=== PATIENT | male | born 1975 | race Caucasian/White ===

== ENCOUNTER 2018-11-24 10:40 | Emergency (ER) | payer MEDICAID ==
[~2018-11-24] VITALS: Ht 193 cm; Wt 84.0 kg
[2018-11-24 11:41] LABS: BASOPHILS % (AUTO) 0.4 % (0-1); EOSINOPHILS # (AUTO) 0.3 X10'3 (0-0.9); EOSINOPHILS % (AUTO) 3.6 % (0-6); HEMATOCRIT 47.4 % (42.0-52.0); HEMOGLOBIN 16.5 g/dl (14.0-17.9); LYMPHOCYTES # (AUTO) 1.6 X10'3 (1.1-4.8); MEAN CORPUSCULAR HEMOGLOBIN 31.7 PG (27.0-31.0); MEAN CORPUSCULAR HGB CONC 34.8 g/dL (33.0-36.5); MEAN CORPUSCULAR VOLUME 91.3 FL (78-98); MEAN PLATELET VOLUME 7.4 FL (7.4-10.4); MONOCYTES # (AUTO) 0.6 X10'3 (0-0.9); MONOCYTES % (AUTO) 7.7 % (2-12); NEUTROPHILS # (AUTO) 5.6 X10'3 (1.8-7.7); NEUTROPHILS % (AUTO) 68.3 % (42-75); PLATELET COUNT 299 X10'3 (140-440); RED BLOOD COUNT 5.19 X10'6 (4.70-6.10); RED CELL DISTRIBUTION WIDTH 12.5 % (11.5-14.5); WHITE BLOOD COUNT 8.1 X10'3 (4.5-11.0)
[2018-11-24 11:55] LABS: CLARITY,URINE CLEAR (Clear); COLOR,URINE YELLOW (Yellow); GLUCOSE, URINE NEGATIVE (Neg); KETONES,URINE TRACE mg/dl (Neg); LEUKOCYTE ESTERASE ,URINE NEGATIVE (Neg); NITRITES, URINE NEGATIVE (Neg); OCCULT BLOOD,URINE TRACE-LYSED (Neg); PROTEIN,URINE NEGATIVE (Neg); UROBILINOGEN,URINE 0.2 E.U/dL (0.2-1.0)
[2018-11-24 11:57] LABS: UA COLLECTION TYPE CLN CATCH MIDSTREAM
[2018-11-24 11:58] LABS: ALANINE AMINOTRANSFERASE 24 U/L (12-78); ALBUMIN 4.3 G/DL (3.4-5.0); ALBUMIN/GLOBULIN RATIO 1.2 (1.1-1.5); ALKALINE PHOSPHATASE 106 IU/L (46-116); ANION GAP 9 (8-16); ASPARTATE AMINO TRANSFERASE 17 U/L (10-37); BILIRUBIN,TOTAL 0.3 MG/DL (0.1-1.0); BLOOD UREA NITROGEN 10 MG/DL (7-18); BUN/CREATININE RATIO 12.7 (5.4-32.0); CALCIUM 8.9 MG/DL (8.5-10.1); CHLORIDE 100 MMOL/L (99-107); CREATININE 0.79 MG/DL (0.60-1.10); ETHANOL < 0.010 GM/DL (0.0-0.010); GLUCOSE 94 MG/DL (70-104); POTASSIUM 3.8 MMOL/L (3.5-5.1); SODIUM 139 MMOL/L (135-145); TOTAL CARBON DIOXIDE 29.6 MMOL/L (24-32); TOTAL PROTEIN 7.8 G/DL (6.4-8.2); eGFR > 90 ML/MIN
[2018-11-24 12:00] LABS: SQUAMOUS EPITHELIAL CELL,UR FEW /LPF (FEW)
[2018-11-24 12:01] LABS: BACTERIA,URINE FEW /HPF (Neg); RBC,URINE 0-2 /HPF (0-2); WBC,URINE 0-4 /HPF (0-4)
[2018-11-24 12:02] LABS: URINE AMPHETAMINE SCREEN NEGATIVE (Neg); URINE BARBITUATE SCREEN NEGATIVE (Neg); URINE BENZODIAZEPINES SCREEN NEGATIVE (Neg); URINE CANNABINOID SCREEN NEGATIVE (Neg); URINE COCAINE SCREEN POSITIVE (Neg); URINE METHADONE SCREEN NEGATIVE (Neg); URINE OPIATE SCREEN POSITIVE (Neg); URINE PHENCYCLIDINE SCREEN NEGATIVE (Neg)
--- NOTE | 2018-11-24 12:03 | NUR ---
Tele-pysch consult initated.
--- NOTE | 2018-11-24 12:31 | NUR ---
spoke to tele-psych and gave report on patient. they will be speaking with patient soon.
--- NOTE | 2018-11-24 12:39 | NUR ---
Patient speack ing with tele psych now.
[2018-11-24] MEDS ORDERED: cloNIDine 0.1 mg tablet PO ONE (13:05)
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
[2018-11-24] MEDS ORDERED: folic acid inj. 2 MG, thiamine inj. 100 MG, MVI, adult No.4 with vit. K 10 ML in dextro... IV SCH ×4 (14:35)
[2018-11-24] MEDS ORDERED: LORazepam 1 MG tablet PO PRN (14:35)
--- NOTE | 2018-11-24 15:53 | NUR ---
Nursing Note: Pt states that he does not take any home medications. IV fluids started. Pt pleasant and cooperative. No S&S of distress, will continue to monitor.
--- NOTE | 2018-11-24 17:53 | NUR ---
Nursing Note: Pt laying in bed, IV infusing, no S&S of distress, will continue to monitor.
--- NOTE | 2018-11-24 19:26 | NUR ---
PATIENT AWAKE, ALERT, SITTING UP IN BED, NO SIGNS OF DISTRESS NOTED. IV TO RAC INTACT, NO SIGNS OF INFILTRATION OR REDNESS. PATIENT TO BE TRANSFERED TO [facility], WILL FACILITATE TRANSFER.
[2018-11-24 21:31] VITALS: BP 116/76
== END 2018-11-24 21:33 ==
LOC: ER 10:40
DX: F32.9 Major depressive disorder, single episode, unspecified (principal); F10.10 Alcohol abuse, uncomplicated; F11.90 Opioid use, unspecified, uncomplicated; F14.90 Cocaine use, unspecified, uncomplicated; Z88.1 Allergy status to other antibiotic agents
CPT/HCPCS: 36415; 80053; 80305; 80320; 81001; 85025; 96365; 96366; 99285; J3411; J3490; J7060

== ENCOUNTER 2018-11-24 17:10 | Inpatient (IN) | payer MEDICAID | END 2018-11-27 13:00 | disposition still patient (30) | LOC: ADULT MH 17:10 | DX: R45.851 Suicidal ideations (principal) ==

== ENCOUNTER 2019-06-10 14:33 | Emergency (ER) | payer MEDICAID ==
[~2019-06-10] VITALS: Ht 190.5 cm; Wt 79.5 kg
[~2019-06-10 14:33] MED LIST: DULO30CA52 PO
[2019-06-10 14:50] VITALS: BP 123/74
== END 2019-06-10 15:24 | disposition home or self-care (01) ==
LOC: ER 14:34
DX: F19.230 Other psychoactive substance dependence with withdrawal, uncomplicated (principal); F14.90 Cocaine use, unspecified, uncomplicated; F11.90 Opioid use, unspecified, uncomplicated; F15.90 Other stimulant use, unspecified, uncomplicated; F32.9 Major depressive disorder, single episode, unspecified; Z88.1 Allergy status to other antibiotic agents; Z79.899 Other long term (current) drug therapy
CPT/HCPCS: 99281

== ENCOUNTER 2022-03-17 13:10 | Emergency (ER) | payer MEDICAID ==
[~2022-03-17] VITALS: Ht 190.5 cm; Wt 81.8 kg
[2022-03-17] MEDS ORDERED: NALO4SPR BOTHNARES ×2 (13:15)
[2022-03-17 13:23] VITALS: BP 166/88
[2022-03-17] MEDS ORDERED: BUPR8TAB4 SL (23:00)
[2022-03-17] MEDS ORDERED: ZOLP10TA PO (23:00)
== END 2022-03-17 13:26 | disposition home or self-care (01) ==
LOC: ER 13:10
DX: T40.411A Poisoning by fentanyl or fentanyl analogs, accidental (unintentional), initial encounter (principal); F32.A Depression, unspecified; F14.90 Cocaine use, unspecified, uncomplicated; F11.90 Opioid use, unspecified, uncomplicated; F19.90 Other psychoactive substance use, unspecified, uncomplicated; Z72.89 Other problems related to lifestyle; Z88.1 Allergy status to other antibiotic agents; Z79.899 Other long term (current) drug therapy; Y92.89 Other specified places as the place of occurrence of the external cause
CPT/HCPCS: 99283

== ENCOUNTER 2022-03-17 17:02 | Inpatient (IN) | payer MEDICAID ==
[~2022-03-17] VITALS: Ht 190.5 cm; Wt 80.2 kg
[~2022-03-17 17:02] MED LIST changes: +NALO4SPR BOTHNARES
--- NOTE | 2022-03-17 17:40 | NUR ---
Pt stated, "I don't want to live anymore" and he took 2 unknown pills. He is unsteady on his feet.
[2022-03-17 18:00] LABS: BASOPHILS % (AUTO) 0.7 % (0-1); EOSINOPHILS # (AUTO) 0.3 X10'3 (0-0.9); EOSINOPHILS % (AUTO) 4.5 % (0-6); HEMATOCRIT 39.4 % (42.0-52.0); HEMOGLOBIN 13.7 g/dl (14.0-17.9); LYMPHOCYTES # (AUTO) 1.7 X10'3 (1.1-4.8); LYMPHOCYTES % (AUTO) 23.9 % (21-51); MEAN CORPUSCULAR HEMOGLOBIN 30.4 PG (27.0-31.0); MEAN CORPUSCULAR HGB CONC 34.8 g/dL (33.0-36.5); MEAN CORPUSCULAR VOLUME 87.4 FL (78-98); MONOCYTES # (AUTO) 0.6 X10'3 (0-0.9); MONOCYTES % (AUTO) 7.9 % (2-12); NEUTROPHILS # (AUTO) 4.6 X10'3 (1.8-7.7); PLATELET COUNT 248 X10'3 (140-440); RED BLOOD COUNT 4.51 X10'6 (4.70-6.10); WHITE BLOOD COUNT 7.3 X10'3 (4.5-11.0)
[2022-03-17 18:05] LABS: URINE AMPHETAMINE SCREEN NEGATIVE (Neg); URINE BARBITUATE SCREEN NEGATIVE (Neg); URINE BENZODIAZEPINES SCREEN POSITIVE (Neg); URINE CANNABINOID SCREEN NEGATIVE (Neg); URINE COCAINE SCREEN NEGATIVE (Neg); URINE METHADONE SCREEN NEGATIVE (Neg); URINE OPIATE SCREEN NEGATIVE (Neg); URINE PHENCYCLIDINE SCREEN NEGATIVE (Neg)
[2022-03-17 18:08] LABS: ALANINE AMINOTRANSFERASE 17 U/L (12-78); ALBUMIN 3.9 G/DL (3.4-5.0); ALBUMIN/GLOBULIN RATIO 1.3 (1.1-1.5); ALKALINE PHOSPHATASE 95 IU/L (46-116); ANION GAP 6 (8-16); ASPARTATE AMINO TRANSFERASE 22 U/L (10-37); BILIRUBIN,TOTAL 0.2 MG/DL (0.1-1.0); BLOOD UREA NITROGEN 9 MG/DL (7-18); BUN/CREATININE RATIO 12.7 (5.4-32.0); CALCIUM 8.8 MG/DL (8.5-10.1); CHLORIDE 106 MMOL/L (99-107); CREATININE 0.71 MG/DL (0.60-1.10); GLUCOSE 120 MG/DL (70-104); POTASSIUM 3.9 MMOL/L (3.5-5.1); SODIUM 142 MMOL/L (135-145); TOTAL CARBON DIOXIDE 30.2 MMOL/L (24-32); eGFR > 90 ML/MIN
[2022-03-17 18:17] LABS: ETHANOL < 0.010 GM/DL (0.0-0.010)
[2022-03-17] MEDS ORDERED: BUPR8TAB4 SL (23:00)
[2022-03-17] MEDS ORDERED: ZOLP10TA PO (23:00)
--- NOTE | 2022-03-18 02:01 | NUR ---
PT HAS BEEN SLEEPING THROUGH THE NIGHT. EVEN AND UNLABORED CHEST RISE AND FALL NOTED.
--- NOTE | 2022-03-18 06:23 | NUR ---
Received report from Merry.
--- NOTE | 2022-03-18 06:31 | NUR ---
Pt ambulated to ED-OF from main ED. Pt was placed in bed #26. Pt was calm/cooperative and went back to sleep. Pt is in a hospital gown, as there is no green scubs.
--- NOTE | 2022-03-18 07:00 | NUR ---
Pt resting comfortably on left side, respirations even and unlabored.
--- NOTE | 2022-03-18 08:30 | NUR ---
Pt ate 100% of his breakfast.
--- NOTE | 2022-03-18 08:55 | NUR ---
[facility] at bedside.
--- NOTE | 2022-03-18 09:05 | NUR ---
Pt awake lying in bed with eyes open, no distress noted.
--- NOTE | 2022-03-18 09:47 | NUR ---
Pt up to bathroom to void. 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
--- NOTE | 2022-03-18 11:03 | NUR ---
Pt slightly restless, letting out loud breathing sounds the rolling over to sleep. Will continue to monitor. Pt was placed on a 5150 hold.
--- NOTE | 2022-03-18 11:08 | NUR ---
PT [facility] [phone]
--- NOTE | 2022-03-18 13:03 | NUR ---
Pt resting comfortably in supine position. Pt ate 100% of his lunch.
--- NOTE | 2022-03-18 14:41 | NUR ---
Pt is restless lying in bed making deliberate loud yawning noises, rolling around in his bed. When asked what is going on pt states "I don't know." Pt has not been agressive, but continues with elevated restlessness. Spoke with Dr. Beckham received order for Zyprexa 5mg BID. Will give first dose now.
[2022-03-18] MEDS: OLANZapine 2.5MG tablet PO SCH ×2 (14:53→20:00)
--- NOTE | 2022-03-18 15:30 | NUR ---
Pt c/o feeling nauseated and having sweats. Pt feel is withdrawing from his Buprenorphine. Pt states his last dose was 2 days ago. Pt's home medications were reviewed and designer writer spoke with Dr. Beckham to restart patient on his medication. Pt's vitals were WNL. Pt is on Buprenorphine 8mg SL BID Will continue to monitor.
--- NOTE | 2022-03-18 16:11 | NUR ---
Received phone call from pt's mental health provider Dr Copeland at [facility] [phone]. She states she was just on phone with pt's mother and she updated her on pts's status. She reports she has been treating patient for about eleven months. She considers pt a high risk if discharged. Explained to her pt was on a 5150 hold and awaiting placement. Received verbal authorization from patient to speak to her.
[2022-03-18] MEDS: buprenorphine/naloxone 8MG-2MG SUBlingual film SL SCH ×2 (16:26→20:00)
--- NOTE | 2022-03-18 17:08 | NUR ---
Pt is restless, continues with low growl sounds. Vitals remain WNL. Suboxone was administered at 1630. Addendum: 03/18/22 at 1715 by FABIENNE No N/V reported.
--- NOTE | 2022-03-18 17:30 | NUR ---
Pt is quiet in bed, respirations even and unlabored. No restless movements. Pt has been very dramatic.
--- NOTE | 2022-03-18 17:58 | NUR ---
Pt continues to rest comfortably.
--- NOTE | 2022-03-18 18:02 | NUR ---
Pt up eagerly eating dinner. Pt states "I feel a lot better." Pt presents calm.
--- NOTE | 2022-03-18 19:00 | NUR ---
PT MOM CALLED TO CHECK ON HIS STATUS. PT RESTING QUIETLY IN BED WITHOUT DISTRESS, WILL MONITOR THROUGHOUT.
--- NOTE | 2022-03-18 21:30 | NUR ---
PT REFUSED NIGHTLY ZYPREXA, INFORMED PT TO LET ME KNOW IF HE THINKS HE NEEDS SOMETHING. PT VERBALIZED UNDERSTANDING.
--- NOTE | 2022-03-19 03:44 | NUR ---
PT UP TO BATHROOM AND BACK TO BET, NO ACUTE DISTRESS NOTED. NO BEHAVIORS
--- NOTE | 2022-03-19 06:45 | NUR ---
PT APPEARS TO BE SLEEPING. NO S/S ACUTE DISTRESS. RESPIRATIONS EQUAL AND UNLABORED
[2022-03-19] MEDS: OLANZapine 2.5MG tablet PO SCH ×2 (07:45→19:58)
[2022-03-19] MEDS: buprenorphine/naloxone 8MG-2MG SUBlingual film SL SCH ×2 (07:45→19:58)
--- NOTE | 2022-03-19 08:06 | NUR ---
DURING 1:1 BEDSIDE ASSESSMENT, PT DENIES SI/SH/HI/AVH. PT CURRENTLY DENIES DEPRESSION OR ANXIETY AT THIS TIME. STATES "I'M JUST SLEEPY." PT DOES NOT ELABORATE REGARDING FEELINGS OR EMOTIONS. PT THEN RETURNS BACK TO SLEEPING
--- NOTE | 2022-03-19 09:30 | NUR ---
[facility] CALLED FOR POSSIBLE PLACEMENT. STATES THEY WILL CALL BACK FOR A NURSE TO NURSE REPORT. REQUESTING A 2 WEEK RX FOR SUBOXONE.
[2022-03-19] MEDS ORDERED: BUPR1FIL3 SL (09:36)
--- NOTE | 2022-03-19 09:45 | NUR ---
[facility] LINDER CALLED AND GIVEN A NURSE TO NURSE REPORT. STATE THEY NEED A 30 DAY SCRIPT FOR SUBOXONE. ARE REQUESTING RESEND OF LABS THEY ARE MISSING THE URINALYSIS. WILL CALL BACK TO CONFIRM PLACEMENT
--- NOTE | 2022-03-19 09:53 | NUR ---
Met with patient in regards to Suboxone use and to make sure patient has a provider outside of Hospital. Patient sees a provider via telehealth to get his Suboxone.
[2022-03-19 10:33] LABS: CLARITY,URINE CLEAR (Clear); COLOR,URINE YELLOW (Yellow); GLUCOSE, URINE NEGATIVE (Neg); KETONES,URINE NEGATIVE (Neg); LEUKOCYTE ESTERASE ,URINE NEGATIVE (Neg); NITRITES, URINE NEGATIVE (Neg); OCCULT BLOOD,URINE NEGATIVE (Neg); PH,URINE 7.5 (4.8-8.0); PROTEIN,URINE NEGATIVE (Neg); UROBILINOGEN,URINE 0.2 E.U/dL (0.2-1.0)
--- NOTE | 2022-03-19 10:34 | NUR ---
PT LYING IN BED AWAKE. NO DISTRESS NOTED. UA TAKEN TO LAB. WILL CONTINUE TO MONITOR.
[2022-03-19 10:52] LABS: UA COLLECTION TYPE CLN CATCH MIDSTREAM
--- NOTE | 2022-03-19 12:25 | NUR ---
PT EATING LUNCH. NO DISTRESS
--- NOTE | 2022-03-19 13:40 | NUR ---
Patient appears restless; he just paced the hallway a few times and is now doing jumping jacks.
--- NOTE | 2022-03-19 14:00 | NUR ---
PT PACING BACK AND FORTH IN [place] AND DOING JUMPING JACKS BY HIS BED.
--- NOTE | 2022-03-19 14:10 | NUR ---
PTS MD ANGELLA KHAN CALLED TO UPDATE PT THAT SHE HAS TO TERMINATE THE CONTRACT FOR BUPRENORPHINE DUE TO PT BEING IN THE HOSPITAL AND THAT HE CAN COME BACK A PT IN THE FUTURE.
--- NOTE | 2022-03-19 14:46 | NUR ---
pt laying in bed resting quietly. no distress noted at this time. will continue to monitor
[2022-03-19] MEDS ORDERED: LORazepam 1 MG tablet PO ONE (16:30)
--- NOTE | 2022-03-19 17:16 | NUR ---
pt resting in bed after pacing and requesting medication to help his anxiety. no distress at this time.
--- NOTE | 2022-03-19 20:05 | NUR ---
pt is lying in bed awake. no distress at this time. will continue to monitor.
--- NOTE | 2022-03-20 06:16 | NUR ---
Received report from Seth Pepe asleep in bed on his left side. Noted rise and fall of chest.
--- NOTE | 2022-03-20 07:19 | NUR ---
Pt. sleeping, rise and fall of chest noted.
[2022-03-20] MEDS: buprenorphine/naloxone 8MG-2MG SUBlingual film SL SCH ×2 (08:25→19:38)
[2022-03-20] MEDS: OLANZapine 2.5MG tablet PO SCH ×2 (08:25→19:38)
--- NOTE | 2022-03-20 08:45 | NUR ---
Medications administered, pt finished breakfast and is resting now.
--- NOTE | 2022-03-20 09:00 | NUR ---
Pt. denies feelings of suicide. Believes he felt this way due to his drug intake. Denies feelings of depression as well.
--- NOTE | 2022-03-20 10:32 | NUR ---
Pt. asleep on their back, noted rise and fall of chest.
--- NOTE | 2022-03-20 11:37 | NUR ---
Pt. sleeping on back, noted rise and fall of chest.
--- NOTE | 2022-03-20 12:00 | NUR ---
[facility] requesting the patient sign a release of information for them to obtain medical information pertaining to him. Pt. filled paperwork out and signed. Faxed paperwork to [phone].
--- NOTE | 2022-03-20 12:17 | NUR ---
Pt. eating lunch at bedside. TV requested. Pt. watching TV.
--- NOTE | 2022-03-20 13:15 | NUR ---
Pt. watching tv, no signs of distress noted.
[2022-03-20] MEDS ORDERED: LORazepam 0.5 MG tablet PO PRN (13:55)
--- NOTE | 2022-03-20 13:57 | NUR ---
Pt approached nurses station stating, "I'm getting bored, I've been in here too long, I'm feeling anxious." One time order for Ativan 0.5mg per MD to be administered.
--- NOTE | 2022-03-20 14:22 | NUR ---
PRN ativan administered per pt request. Pt. stating he is ready to leave and is bored. Pt watching tv.
--- NOTE | 2022-03-20 15:30 | NUR ---
Pt. watching tv in bed. No signs of distress noted.
--- NOTE | 2022-03-20 16:34 | NUR ---
Pt stretching at bedside, no signs of distress noted.
--- NOTE | 2022-03-20 17:23 | NUR ---
Nurse called [facility] office to get update regarding pt. placement. Nurse informed [facility] office Dr. Stringer wrote a prescription for suboxone with a quanity of 28 strips to go to discharge facility with him. [facility] office notified nurse pt. had previously been declined due to not having a written prescrption for suboxone. [facility] office will get back into contact with facilities and notify them of new prescription.
--- NOTE | 2022-03-20 17:30 | NUR ---
Pt ate dinner at bedside. No distress noted.
--- NOTE | 2022-03-20 20:30 | NUR ---
Received patient at 1825. Patient was found resting in bed watching tv. Nurse was told in report that [facility] was called and confirmed they would not be taking patient due to him being on buprenorphine. [facility] was then called and they agreed to accept patient. [facility]. Patient was later observed pacing back and forth around unit complaining of anxiety. Patient was given night medications and returned to bed. 1Hour later patient again got up complaining of anxiety and being unable to sleep. Patient was given a once 25 mg of seroquel ordered by ER doctor and returned to bed.
[2022-03-20] MEDS ORDERED: quetiapine 100mg tablet PO ONE (20:40)
[2022-03-20] MEDS ORDERED: QUEtiapine 25mg tablet PO ONE (20:55)
--- NOTE | 2022-03-20 21:03 | NUR ---
The patient has been accepted at [facility]
[2022-03-20] MEDS ORDERED: loperamide 2mg capsule PO PRN (22:00)
[2022-03-20] MEDS ORDERED: mag hydrox/Alum hydrox/simeth 30ml oral suspension PO PRN (22:00)
[2022-03-20] MEDS ORDERED: acetaminophen 325mg tablet PO PRN ×2 (22:00)
[2022-03-20] MEDS ORDERED: magnesium hydroxide 30ml (MOM) UD suspension PO PRN (22:00)
[2022-03-20] MEDS ORDERED: OLAN5TAB3 PO (22:18)
[2022-03-20] MEDS ORDERED: hydrOXYzine 25 MG tablet PO PRN (22:45)
[2022-03-20] MEDS ORDERED: traZODone 50mg tablet PO PRN (22:45)
--- NOTE | 2022-03-21 01:04 | NUR ---
NURSING ADMISSION NOTE Per 5150 pt reported having a plan to suicide by overdosing, jumping off a bridge, or running in traffic. Pt left the hospital AMA 03/17 after a fentanyl overdose then returned the same day after overdosing on "oxycodone". Pt arrived from ED overflow 03/20/22 @ 2155 accompanied by PCT Radha and . 2 person skin check completed and pt showered. Pt changed into clean green scrubs. 5150 advisement completed. PCT found 15 suboxone films in patients laundry which were taken to pharmacy. Pt is agitated and speech is tangential during admission process. Pt states he doesn't know why he is here and is denying s/i. Pt minimizes why he is here and states he only took one oxycodone. "I just told everyone I was suicidal because of the drugs I took, I havent been suicidal in years!" Pt completed paperwork and began to pace the halls. Pt is agitated and states he cant sleep and is angry about being here. "last time I was here, I was here for 9 days! You shouldve left me downstairs so I can go home!" Pt was given prn trazodone and went to sleep. Pt states he can't take atarax/antihistamines because he gets restless legs. Pt has significant hx of polysubstance abuse. Pt denies any other medical hx.
[2022-03-21] MEDS: buprenorphine/naloxone 8MG-2MG SUBlingual film SL SCH ×2 (07:30→20:14)
[2022-03-21] MEDS: OLANZapine 2.5MG tablet PO SCH (07:30)
[2022-03-21 08:21] VITALS: BP 105/75
[2022-03-21 09:13] LABS: CHOL/HDL RATIO 3.1 (0.00-4.99); CHOLESTEROL 210 MG/DL (0-200); HDL CHOLESTEROL 68 MG/DL (35-60); LDL CHOLESTEROL 107 MG/DL (50-100); TRIGLYCERIDES 121 MG/DL (20-135)
[2022-03-21 09:19] LABS: HEMOGLOBIN A1C 5.4 % (4.5-6.2)
--- NOTE | 2022-03-21 12:41 | NUR ---
Met with patient in regards to substance use and to see if patient wanted any resources for treatment options. Patient is interested in inpatient rehab in [facility]. I gave patient [facility] number to call and see if it's a covered benefit with his [facility]. I will follow up with patient to what progress has been made.
--- NOTE | 2022-03-21 14:27 | NUR ---
Followed up with patient in regards to his conversation with Hermila. Patient waiting for call back from [facility]. There are no beds available right now but Patient is eager to go to rehab when bed becomes available. Patient feels that he would be able to go home to his moms house and call his sponsor and refrain from using. I let his foster care social worker and provider know.
--- NOTE | 2022-03-21 16:20 | NUR ---
Nursing Progress Note: Problem: Per 5150 pt reported having a plan to suicide by overdosing, jumping off a bridge, or running in traffic. Pt left the hospital AMA 03/17 after a fentanyl overdose then returned the same day after overdosing on "oxycodone." Intervention: Medication given as ordered. Provided with a safe and therapeutic environment, clear communication, active listening and positive encouragement. Response: No adverse side effects observed from medications. Patient is cooperative with 1:1 assessment. Denies any SI and states he only said he was suicidal due to the drugs he was on. Patient paces the unit and interacts appropriately with peers. Plan: Patient continues to require crisis interruption and stabilization with medication management and monitoring in a safe and therapeutic environment.
[2022-03-21 19:55] VITALS: BP 132/85
--- NOTE | 2022-03-22 01:24 | NUR ---
Nursing Progress Note: Har[place] Problem: Per 5150 pt reported having a plan to suicide by overdosing, jumping off a bridge, or running in traffic. Pt left the hospital AMA 03/17 after a fentanyl overdose then returned the same day after overdosing on "oxycodone." Intervention: Medication given as ordered. Provided with a safe and therapeutic environment, clear communication, active listening and positive encouragement. Response: Patient appeared anxious at start of shift stating he is ready to get out of here and why arent the Drs listening to me. Pt paced in the hallway and eventually sat in the community room and watched TV. Provided pt with 50MG of atarax with good effect. Pt participated in snacks and was laughing and joking with peers. Pt medication compliant. Plan: Patient continues to require crisis interruption and stabilization with medication management and monitoring in a safe and therapeutic environment.
[2022-03-22 08:00] VITALS: BP 106/67
[2022-03-22] MEDS: buprenorphine/naloxone 8MG-2MG SUBlingual film SL SCH (08:10)
--- NOTE | 2022-03-22 12:15 | NUR ---
Jose is a 46 y/o single male who was placed on 5150 for danger to self. He presented to ED with suicidal ideation. He had reportedly overdosed on medications and came to ED, left, and then returned to ED. Harlan reported he had bought xanex and oxy on the internet and took two of them and they were really strong. He reported he came to the ED and did not recall making suicidal statements, "I don't want to kill myself". He denied any current SI or HI. He denied any suicide attempts. He called [place] yesterday to try to get into a residential substance use tx. He is waiting for [employer] to call him back. He was goal directed and future oriented. He did not seem overly invested in going to [place] as he also has plans of traveling to [place]. He reported he can return to his mom's house in [place] until he decides what he is going to do. He was getting his suboxone through [facility]. He believes they have dropped him and he knows he can get suboxone through [facility] if needed. He gave story writer verbal permission to call his mom to see if he can stay there. Left Rowan a message requesting a call back (ph# [phone]). MURPHY Cortes Addendum: 03/22/22 at 1216 by Lorene Connelly SS Amended: Links added.
--- NOTE | 2022-03-22 14:07 | NUR ---
Spoke with Jose's mom, Rowan (ph# [phone]), and she reported Jose sounds much better and can return to her home. She reported she can pick him up upon discharge. MURPHY Cortes
--- NOTE | 2022-03-22 14:35 | NUR ---
DISCHARGE PLAN Jose can return to his mom's house upon discharge. He reported he will follow up with [facility] for suboxone and counseling. He is aware he can also go to [facility] for suboxone as well. MURPHY Cortes
--- NOTE | 2022-03-22 17:09 | NUR ---
Nursing Progress Note: Problem: Per 5150 pt reported having a plan to suicide by overdosing, jumping off a bridge, or running in traffic. Pt left the hospital AMA 03/17 after a fentanyl overdose then returned the same day after overdosing on "oxycodone." Intervention: Medication given as ordered. Provided with a safe and therapeutic environment, clear communication, active listening and positive encouragement. Response: No adverse side effects observed from medications. Patient is cooperative with 1:1 assessment. Denies any SI and states he only said he was suicidal due to the drugs he was on. Patient paces the unit and interacts appropriately with peers. Pt is planned to discharge this evening. Plan: Patient continues to require crisis interruption and stabilization with medication management and monitoring in a safe and therapeutic environment.
[2022-03-22] MEDS ORDERED: HYDR-3686 PO (18:00)
--- NOTE | 2022-03-22 19:06 | NUR ---
just received 15 packets of sublingual BUPRENORPHINE&NALOXONE 8MG/2MG FOR THE PT AND GIVEN TO HIM AT DISCHARGE.
--- NOTE | 2022-03-22 19:10 | NUR ---
CENTRIFUGAL STATION OPERATOR NOTE: LEGAL HOLD: Changed from a 5150 for DTS to VOL. THIS SHIFT: Client spoke with SOURAV Campos at change of shift. Decision was made to discharge client to home. Clients' belongings were returned to him. Meds were obtained from the Pharmacy, by Juno Carr RN, and returned to the client. Client leaving [facility] in private vehicle (mother is taking client to her home in [place], [place]). Client was pleasant and cooperative. Moderately anxious but feels he is ready to discharge. Discharge instructions were reviewed with client who acknowledged understanding. Client was accompanied to [facility] entrance by PATTI Fox at 19:15.
== END 2022-03-22 19:15 | disposition home or self-care (01) | DRG 755 ==
LOC: ER 17:05 → ED HOLD 03-20 20:30 → ADULT MH 03-20 21:51
PROVIDERS: ADMIT Psychiatry & Neurology Psychiatry; ATTEND Psychiatry & Neurology Psychiatry
DX: F43.25 Adjustment disorder with mixed disturbance of emotions and conduct (principal); R45.851 Suicidal ideations; F32.A Depression, unspecified; Z20.822 Contact with and (suspected) exposure to COVID-19; F41.9 Anxiety disorder, unspecified; F60.81 Narcissistic personality disorder; G89.4 Chronic pain syndrome; F14.90 Cocaine use, unspecified, uncomplicated; Z81.8 Family history of other mental and behavioral disorders; Z88.1 Allergy status to other antibiotic agents; Z56.0 Unemployment, unspecified; Z88.8 Allergy status to other drugs, medicaments and biological substances; Z79.899 Other long term (current) drug therapy
CPT/HCPCS: 36415; 80053; 80061; 80305; 80320; 81003; 83036; 84443; 85025; 87081; 87635; 99285; C9803; Q0177